=== PATIENT | male | born 1945 | race Caucasian/White ===

== ENCOUNTER → 2017-11-04 | Outpatient (CLI) | payer MEDICARE | END | disposition home or self-care (01) | LOC: CT 14:02 | DX: I25.10 Atherosclerotic heart disease of native coronary artery without angina pectoris (principal); R91.8 Other nonspecific abnormal finding of lung field | CPT/HCPCS: 71250 ==

== ENCOUNTER → 2018-11-04 | Outpatient (CLI) | payer MEDICARE ==
[~2018-11-04] MED LIST: CHOL200059 PO; DILT180C4 PO; EZET1TAB35 PO; FERR324T14 PO; METF500T16 PO; MINO100T2 PO; MOME17SP NS; NIAC500T9 PO; NYST15CR2 TP; OMEG1CAP6 PO; PANT40TA5 PO; TEMA15CA PO; WARF7.5T45 PO
--- NOTE | 2018-11-04 12:48 | RAD ---
CT study chest without contrast Clinical indications: Follow-up of lung nodule. COMPARISON: Chest CT dated August 21, 2016 and November 04, 2017. TECHNIQUE: Noncontrast helical CT scanning of the chest was performed. Without IV contrast, the sensitivity to detect organ pathology is decreased. Area PQRS compliance Statement One or more of the following individualized dose reduction techniques were utilized for this study: 1. Automated exposure control 2. Adjustment of the mA and/or kV according to patient size 3. Use of iterative reconstruction technique FINDINGS: No focal aneurysmal dilatation of thoracic aorta is seen. Ectasia of the ascending aorta is seen measuring up to 4.6 cm in greatest caliber. This is unchanged. Calcified atheromatous disease of the coronary arteries is seen. Heart size is normal and no pericardial effusion is seen. No enlarging thoracic lymphadenopathy is evident. No adrenal mass is evident. Again seen is peripheral interstitial fibrosis including honeycombing with a lower lung zone predominance. Again seen are small calcified granulomas bilaterally. Again seen is bilateral lateral pleural thickening which is stable. Small lung nodules are stable consistent with a benign finding. No new lung nodules or new lung infiltrate is seen. No pleural effusion or pneumothorax is evident. The proximal bronchial tree is patent. No lytic process is seen. IMPRESSION: Stable lung nodules consistent with a benign finding. Stable interstitial pulmonary fibrosis. No new lung infiltrates. Calcified atheromatous disease of the coronary arteries. Stable ectasia of the ascending aorta. Electronically signed by: Manuel Iraheta MD (11/04/2018 12:45 PM) [facility]
== END | disposition home or self-care (01) ==
LOC: CT 09:21
PROVIDERS: ATTEND Internal Medicine Critical Care Medicine
DX: I77.810 Thoracic aortic ectasia (principal); J84.10 Pulmonary fibrosis, unspecified; I25.10 Atherosclerotic heart disease of native coronary artery without angina pectoris; R91.8 Other nonspecific abnormal finding of lung field
CPT/HCPCS: 71250

== ENCOUNTER → 2019-06-07 | Outpatient (CLI) | payer MEDICARE ==
[~2019-06-07] MED LIST changes: -PANT40TA5 PO; +PANT40TA77 PO
--- NOTE | 2019-06-07 09:47 | RAD ---
EXAM: Left knee, 3 views. HISTORY: Pain and stiffness. COMPARISON: None. FINDINGS: 3 views of the left knee are obtained. There is medial compartment joint space narrowing with subchondral sclerosis and spurring. There is mild lateral and patellofemoral compartment spurring. There is suspected mild genu varus. There are suspected small joint loose bodies. No significant joint effusion is seen. IMPRESSION: 1. 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 2. No acute osseous finding. Electronically signed by: Amanda Pratt MD (06/07/2019 9:44 AM) [facility]
== END | disposition home or self-care (01) ==
LOC: RAD 09:07
PROVIDERS: ATTEND Family Medicine
DX: M25.662 Stiffness of left knee, not elsewhere classified (principal); M25.562 Pain in left knee; M17.0 Bilateral primary osteoarthritis of knee
CPT/HCPCS: 73562

== ENCOUNTER → 2019-10-17 | Outpatient (CLI) | payer MEDICARE ==
--- NOTE | 2019-10-17 17:44 | RAD ---
CHEST PA LATERAL History: Wheezing Comparison: Chest CT November 04, 2018 Findings: 2 views of the chest are submitted. Pericardial cardiac silhouette is fairly similar. There is no dependent pleural fluid, lobar consolidation, or pneumothorax. There is some interstitial opacity of the lung bases bilaterally probably unchanged although somewhat difficult to accurately compare between the 2 modalities. There is scattered thoracic spondylosis. Impression: 1. No lobar consolidation is identified. There is interstitial opacity near the lung bases bilaterally as may be secondary to sequela of interstitial//fibrosis. Electronically signed by: Cali Elder MD (10/17/2019 5:41 PM) [id number]
== END | disposition home or self-care (01) ==
LOC: RAD 16:07
PROVIDERS: ATTEND Internal Medicine Critical Care Medicine
DX: J98.4 Other disorders of lung (principal); M47.814 Spondylosis without myelopathy or radiculopathy, thoracic region
CPT/HCPCS: 71046

== ENCOUNTER → 2020-01-11 | Outpatient (CLI) | payer MEDICARE ==
--- NOTE | 2020-01-11 14:31 | RAD ---
Examination: CT chest without contrast HISTORY: History of lung nodule COMPARISON: 11/04/[address] images of chest were performed without contrast. Coronal and sagittal reformats are performed Exposure: One or more of the following individualized dose reduction techniques were utilized for this examination: 1. Automated exposure control 2. Adjustment of the mA and/or kV according to patient size 3. Use of iterative reconstruction technique FINDINGS: The central airways are patent. Coronary artery calcifications identified. The heart size grossly appears unremarkable. Ectasia of ascending aorta again identified. Bilateral interstitial fibrosis particularly in the bibasilar lungs similar to prior exam. There is a small nodule identified in the right lower lobe of the lung measuring 8.5 mm which appears new since prior exam. There is a hypodensity identified in the liver measuring 2.1 cm which is new since prior exam. Moderate degenerative changes thoracic spine. IMPRESSION: 1. New 8.5 mm nodule right lower lobe of the lung. Continued follow-up is recommended per Fleischner Society guidelines with a follow-up CT in 3-6 months. 2. A 2.1 cm hypodensity identified in the right lobe of the liver. Recommend triphasic CT or MRI for further evaluation. Electronically signed by: Jesus Null MD (01/11/2020 2:29 PM) [id number]
== END | disposition home or self-care (01) ==
LOC: CT 12:50
PROVIDERS: ATTEND Internal Medicine Critical Care Medicine
DX: R91.1 Solitary pulmonary nodule (principal); I77.810 Thoracic aortic ectasia; K76.89 Other specified diseases of liver; I25.10 Atherosclerotic heart disease of native coronary artery without angina pectoris; M47.894 Other spondylosis, thoracic region
CPT/HCPCS: 71250